=== PATIENT | female | born 1975 | race Caucasian/White ===

== ENCOUNTER 2016-06-30 09:08 | Emergency (ER) | payer OTHER ==
[2016-04-24 08:48] VITALS: BMI 27.4
[2016-06-30 10:43] LABS: RBC URINE 3 /hpf (0-3); URINE BILIRUBIN NEGATIVE (NEGATIVE); URINE BLOOD NEGATIVE (NEGATIVE); URINE COLOR Yellow (YELLOW); URINE GLUCOSE (UA) NORMAL (Normal); URINE KETONE TRACE mg/dL (NEGATIVE); URINE LEUKOCYTE ESTERASE NEG Leu/uL (Negative); URINE PROTEIN NEGATIVE (NEGATIVE); URINE UROBILINOGEN NORMAL mg/dL (0.2-1.0); WBC URINE 3 /hpf (0-5)
--- NOTE | 2016-06-30 11:04 | OBHP ---
Datetime: 06/30/2016 09:54 IP Adm Impression: , intrauterine ; No Active Labor IP Chief Complaint Other: lower abdominal pain Admit Comment, IP Provider: chief complaint- lower abdominal pain HPI 40 y/o at 31.6 wga with c/o lower abdominal pain since yesterday.Patient states that s he feels the pain is improved on lying down.Denies vaginal bleeding or loss of fluid.Patient denies v omiting or diarrhea.Has not had much water to drink course AMA PMH asthma PSH csection; hernia repairx2 Social hx denies tobacco,alcohol or illicit drug use Exam see exam section A/P 40 y/o at 31.6 wga with c/o low abdominal pain.Improved with rest.No active labor.Chec k UA 1101am UA neg for nitrites and LE; positive for epithelial cells A/P Patient with low abdominal pain.No active labor.Pian improved with rest -patient discharged home -advised to increase po fluid intake -follow up with dr sanchez tomorrow Pelvic Type - PN: Adequate Extremities - PN: Normal Abdomen - PN: Normal Back - PN: Normal Lungs - PN: Normal Heart - PN: Normal Neurologic - PN: Normal General - PN: Normal Contraction Comments Provider: none Gestation - Est Wks by US: 31.6 EGA AdmitDate IP: 31.6 Vital Signs Provider: Reviewed IP Chief Complaint: Other FHR Category Provider Fetus A: Category I Dilatation, Provider: 0 Effacement, Provider: 0 Station, Provider: high Genitourinary Exam: Normal DTRs - PN: Normal
== END 2016-06-30 11:09 | disposition home or self-care (01) ==
LOC: C.EROB 09:08
DX: O26.893 Other specified pregnancy related conditions, third trimester (principal); R10.30 Lower abdominal pain, unspecified; Z3A.31 31 weeks gestation of pregnancy

== ENCOUNTER 2016-07-08 08:59 | Emergency (ER) | payer OTHER ==
[2016-07-08 09:14] VITALS: BMI 33.3
[2016-07-08 09:16] VITALS: BP 122/75; PULSE 102; RESP 20; TEMP 97.8; O2SAT 99
[2016-07-08 10:36] LABS: RBC URINE 2 /hpf (0-3); URINE BACTERIA OCC (<OCC); URINE BILIRUBIN NEGATIVE (NEGATIVE); URINE BLOOD NEGATIVE (NEGATIVE); URINE COLOR Yellow (YELLOW); URINE GLUCOSE (UA) 2+ mg/dL (Normal); URINE KETONE TRACE mg/dL (NEGATIVE); URINE LEUKOCYTE ESTERASE TRACE Leu/uL (Negative); URINE PROTEIN NEGATIVE (NEGATIVE); URINE UROBILINOGEN NORMAL mg/dL (0.2-1.0); WBC URINE 6 /hpf (0-5)
--- NOTE | 2016-07-08 10:45 | OBDCSUM ---
Datetime: 07/08/2016 10:43 Discharged to, Provider: Home Follow up at, Provider: dr sanchez Follow up in weeks, Provider: 1-2 days Discharge Comment, Provider: dc home ptl given po hyrtion tylenol prn f/u dr gibbs in 1-2 days Discharge Diagnosis Prov Other: 33weeks nst muscle spasm
--- NOTE | 2016-07-08 10:45 | OBHP ---
Datetime: 07/08/2016 10:38 IP Adm Impression: , intrauterine IP Admit Plan: Discharge home Admit Comment, IP Provider: t 33weeks came with c/o groin pain started after she bend to put he r shoes, no ctxs,vb, lof,=fm, no dysuria. obhx 1 x sab, 1 x c/s pmh denies med pnv all nkda psh c/s soch denies ua 2=gl ve closed fs a/p at 33weeks r/o pt labor/r/o uti pooss muscle spasm dc home ptl given po hyrtion tylenol prn f/u dr gibbs in 1-2 days Pelvic Type - PN: Adequate Extremities - PN: Normal Abdomen - PN: Normal Back - PN: Normal Breast - PN: Normal Lungs - PN: Normal Heart - PN: Normal Thyroid - PN: Normal Neurologic - PN: Normal HEENT - PN: Normal General - PN: Normal FHR - Baseline A Provider: 140 Contraction Comments Provider: none Comments, ACOG Physical Exam: gravid,non tender ext no edema,no calf ten ve closed IP Hx Assessment: The History has been Reviewed and is Current EGA AdmitDate IP: 33.0 IP Chief Complaint: Maternal discomfort NICHD Variability Prov Fetus A: Moderate 6-25bpm NICHD Accel Fetus A IP Provider: 15X15 FHR Category Provider Fetus A: Category I Dilatation, Provider: 0 Effacement, Provider: 0 Station, Provider: -3 Genitourinary Exam: Normal DTRs - PN: Normal
== END 2016-07-08 10:43 | disposition home or self-care (01) ==
LOC: C.EROB 08:59
DX: O26.893 Other specified pregnancy related conditions, third trimester (principal); R10.30 Lower abdominal pain, unspecified; Z3A.33 33 weeks gestation of pregnancy

== ENCOUNTER 2016-07-24 08:42 | Emergency (ER) | payer OTHER ==
[2016-07-24 09:27] VITALS: BMI 33.7
--- NOTE | 2016-07-24 09:33 | OBHP ---
Datetime: 07/24/2016 09:29 IP Adm Impression: , intrauterine IP Chief Complaint Other: swollen legs and hands IP Admit Plan: Discharge home Admit Comment, IP Provider: at 35weeks came with c/o swollen legs and hands from 3 days , got w orse today. some hedache no blurry vision, no ctxs, vb, lof,+fm. obhx 1 x cs pmh denie med pnv all morphine psh hernia, c/s soch denies a/p at 35weeks r/o pih/pedal edema cbc/cmp/lfts/ua/pt cont bpp monitoring cont sandra and efm cont close observation Pelvic Type - PN: Adequate Extremities - PN: Normal Abdomen - PN: Normal Back - PN: Normal Breast - PN: Normal Lungs - PN: Normal Heart - PN: Normal Thyroid - PN: Normal Neurologic - PN: Normal HEENT - PN: Normal General - PN: Normal FHR - Baseline A Provider: 130 Contraction Comments Provider: none Comments, ACOG Physical Exam: gravid,non tender ext +edema,no calf ten 2+relexs IP Hx Assessment: The History has been Reviewed and is Current Vital Signs Provider: Reviewed; Within Normal Limits NICHD Variability Prov Fetus A: Moderate 6-25bpm NICHD Accel Fetus A IP Provider: 15X15 FHR Category Provider Fetus A: Category I Genitourinary Exam: Normal DTRs - PN: Normal Datetime: 07/08/2016 10:38 EGA AdmitDate IP: 33.0
[2016-07-24 09:48] LABS: HEMATOCRIT 35.7 % (34.0-47.0); MEAN CELL VOLUME 89.8 fL (81.0-99.0); MEAN CORPUSCULAR HEMOGLOBIN 29.6 pg (27.0-31.0); MEAN PLATELET VOLUME 9.4 fL (7.2-11.7); WHITE BLOOD COUNT 8.3 K/uL (4.8-10.8)
[2016-07-24 09:54] LABS: CHLORIDE 104 mmol/L (98-107)
[2016-07-24 09:55] LABS: POTASSIUM 3.5 mmol/L (3.6-5.2); SODIUM 134 mmol/L (132-148)
[2016-07-24 09:57] LABS: BILIRUBIN,DIRECT 0.1 mg/dL (0.0-0.4); BILIRUBIN,TOTAL 0.1 mg/dL (0.2-1.3); CARBON DIOXIDE 17 mmol/L (22-30); GFR AFRICAN-AMERICAN > 60; RBC URINE 3 /hpf (0-3); URINE BILIRUBIN NEGATIVE (NEGATIVE); URINE BLOOD NEGATIVE (NEGATIVE); URINE COLOR Yellow (YELLOW); URINE GLUCOSE (UA) NORMAL (Normal); URINE KETONE NEGATIVE (NEGATIVE); URINE LEUKOCYTE ESTERASE TRACE Leu/uL (Negative); URINE PROTEIN NEGATIVE (NEGATIVE); URINE UROBILINOGEN NORMAL mg/dL (0.2-1.0); WBC URINE 3 /hpf (0-5)
[2016-07-24 09:58] LABS: ALB/GLOB RATIO 0.9 (1.0-2.1); ALKALINE PHOSPHATASE 99 U/L (38-126); ALT/SGPT 22 U/L (9-52); AST/SGOT 17 U/L (14-36); BLOOD UREA NITROGEN 13 mg/dL (7-17); CALCIUM 8.5 mg/dl (8.6-10.4); GLUCOSE,RANDOM 124 mg/dL (65-105); TOTAL PROTEIN 6.2 g/dL (6.3-8.3)
--- NOTE | 2016-07-24 10:48 | OBHP ---
Datetime: 07/24/2016 10:46 Admit Comment, IP Provider: pt was seen at bed side. feels ok. pih work up carla bp normal plan dc home preeclamptic s/s given po hyration f/u pmd on wednesday FHR - Baseline A Provider: 130 Contraction Comments Provider: none Vital Signs Provider: Reviewed; Within Normal Limits NICHD Variability Prov Fetus A: Moderate 6-25bpm NICHD Accel Fetus A IP Provider: 15X15 FHR Category Provider Fetus A: Category I
== END 2016-07-24 10:49 | disposition home or self-care (01) ==
LOC: C.EROB 08:42
DX: O26.93 Pregnancy related conditions, unspecified, third trimester (principal); Z3A.35 35 weeks gestation of pregnancy; M79.89 Other specified soft tissue disorders

== ENCOUNTER 2016-08-15 02:35 | Inpatient (IN) | payer OTHER ==
[2016-08-15] MEDS ORDERED: Lactated Ringer's 1,000 ML IV SCH ×2 (05:00→19:15)
[2016-08-15 05:46] LABS: BASO % 0.4 % (0.0-2.0); EOS # 0.1 K/uL (0.0-0.7); EOS % 1.3 % (0.0-4.0); HEMATOCRIT 40.2 % (34.0-47.0); LYMPH # 1.4 K/uL (1.0-4.3); LYMPH % 15.3 % (20.0-40.0); MEAN CELL VOLUME 90.3 fL (81.0-99.0); MEAN CORPUSCULAR HEMOGLOBIN 30.4 pg (27.0-31.0); MEAN CORPUSCULAR HGB CONC 33.6 g/dL (33.0-37.0); MEAN PLATELET VOLUME 10.6 fL (7.2-11.7); MONO # 0.6 K/uL (0.0-0.8); MONO % 7.1 % (0.0-10.0); NRBC % 0.2 % (0.0-2.0); RED CELL DISTRIBUTION WIDTH 14.4 % (11.5-14.5)
[2016-08-15 05:54] LABS: RBC URINE 4 /hpf (0-3); URINE BACTERIA RARE (<OCC); URINE BILIRUBIN NEGATIVE (NEGATIVE); URINE BLOOD 2+ (NEGATIVE); URINE COLOR Yellow (YELLOW); URINE GLUCOSE (UA) NORMAL (Normal); URINE KETONE NEGATIVE (NEGATIVE); URINE LEUKOCYTE ESTERASE NEG Leu/uL (Negative); URINE PROTEIN NEGATIVE (NEGATIVE); URINE UROBILINOGEN NORMAL mg/dL (0.2-1.0); WBC URINE 1 /hpf (0-5)
[2016-08-15 06:03] LABS: CHLORIDE 99 mmol/L (98-107); POTASSIUM 3.7 mmol/L (3.6-5.2); SODIUM 135 mmol/L (132-148)
[2016-08-15 06:05] LABS: AST/SGOT 25 U/L (14-36); BILIRUBIN,TOTAL 0.6 mg/dL (0.2-1.3); CARBON DIOXIDE 23 mmol/L (22-30); GFR AFRICAN-AMERICAN > 60
[2016-08-15 06:06] LABS: ALB/GLOB RATIO 1.1 (1.0-2.1); ALKALINE PHOSPHATASE 134 U/L (38-126); ALT/SGPT 30 U/L (9-52); BLOOD UREA NITROGEN 16 mg/dL (7-17); CALCIUM 9.7 mg/dl (8.6-10.4); GLUCOSE,RANDOM 78 mg/dL (65-105); TOTAL PROTEIN 6.9 g/dL (6.3-8.3)
[2016-08-15] MEDS ORDERED: Sodium Citrate/Citric Acid 15 ml Sol PO ONE (06:32)
[2016-08-15] MEDS ORDERED: cefOXitin IV 2 gm in Dextrose 2 GM/50 ML BAG IVPB ONE ×2 (06:32→15:50)
--- NOTE | 2016-08-15 07:04 | OBADHP ---
Datetime: 08/15/2016 03:35 Admit Comment, IP Provider: chief complaint- vaginal bleeding HPI 40 y/o at 38.3 wga with c/o noticing bleeding.states she had intecrourse at 11pm and a fter that noticed bleeding.She denies feeling any pain.report active movement.Denies nausea, vo miting, hedache, chest pain,shortness of breath, numbness or tingling in hands and feet course AMA PMH asthma PSH csection; hernia repairx2 Social hx denies tobacco,alcohol or illicit drug use Exam see exam section Speculum exam- vulva -small skin abreasion seen at introitus Vagina -no blood; physiologic discharge cervix closed uterus gravid adnexa no adnexal tenderness A/P 40 y/o at 38.3 wga with post-coital bleeding. no active bleeding now.cervix closed.Patien t with contractions.patient noted to have high bp when undergoing speculum exam but normal bp otherwi se.patient denies any PIH symptoms -admit -iv fluids -monitor closely Dr Villagomez aware Pelvic Type - PN: Adequate Extremities - PN: Normal Abdomen - PN: Normal Back - PN: Normal Lungs - PN: Normal Heart - PN: Normal Neurologic - PN: Normal General - PN: Normal Contraction Comments Provider: every 3min -irregular Gestation - Est Wks by US: 38.3 IP Hx Assessment: The History has been Reviewed and is Current Vital Signs Provider: Reviewed IP Chief Complaint: Vaginal bleeding FHR Category Provider Fetus A: Category I Dilatation, Provider: closed Effacement, Provider: thick Station, Provider: high Genitourinary Exam: Normal DTRs - PN: Normal EGA AdmitDate IP: 38.3 IP Adm Impression: Term, intrauterine ; No Active Labor Datetime: 07/24/2016 10:46 FHR - Baseline A Provider: 130 NICHD Variability Prov Fetus A: Moderate 6-25bpm NICHD Accel Fetus A IP Provider: 15X15 Datetime: 07/24/2016 09:29 IP Chief Complaint Other: swollen legs and hands Breast - PN: Normal Thyroid - PN: Normal HEENT - PN: Normal Comments, ACOG Physical Exam: gravid,non tender ext +edema,no calf ten 2+relexs IP Admit Plan: Discharge home Datetime: 06/12/2016 11:51 IP Adm Impression Other: Intact Membranes Presentation-Admit: Vertex Membranes, Provider: Intact Pool Provider: Negative Nitrazine Provider: Negative NICHD Decel Fetus A IP Provider: None
[2016-08-15] MEDS ORDERED: Sodium Citrate/Citric Acid 15 ml Sol ONE (15:50)
[2016-08-15] MEDS ORDERED: Oxytocin 20 units in LR 2,000 ML IV ONE (15:50)
--- NOTE | 2016-08-15 15:58 | OBPN ---
Datetime: 08/15/2016 15:52 IP Progress Impression Other: Previous Section with Persistent Uterine contractions IP Progress Impression: Reassuring heart rate IP Informed Consent Obtain: Section Delivery IP Progress Plan: Deliver- Section Contraction Comments Provider: Q 2-3 FHR - Baseline A Provider: 130s Gestation - Est Wks by US: 38.6 Presentation-Admit: Vertex IP Progress Note Comment: IUP At Term Previous Section with Persistent Contractions Assessment: IUP at 38wks Painful uterine contractions. Plan: Topographical Engineer to the OR for a repeat Section. IV Fluids Sequential compression device NICHD Accel Fetus A IP Provider: 15X15 FHR Category Provider Fetus A: Category I NICHD Variability Prov Fetus A: Moderate 6-25bpm Dilatation, Provider: closed Effacement, Provider: thick Station, Provider: -3 NICHD Decel Fetus A IP Provider: None Datetime: 08/15/2016 03:35 Vital Signs Provider: Reviewed Datetime: 06/12/2016 11:51 Pool Provider: Negative Nitrazine Provider: Negative Membranes, Provider: Intact
[2016-08-15] MEDS ORDERED: Morphine 4 MG/ML VIAL ONE (17:56)
[2016-08-15] MEDS ORDERED: ePHEDrine 50 mg/ml Inj ONE (17:56)
[2016-08-15] MEDS ORDERED: Morphine 1 mg/ml preservative-free Inj(Duramorph) ONE (17:57)
[2016-08-15] MEDS ORDERED: Oxycodone/Acetaminophen 5/325 mg Tab PO PRN (19:10)
--- NOTE | 2016-08-15 19:11 | OBDS ---
DELIVERY PERSONNEL Delivery Doctor: Morris Villagomez MD Scrub Nurse: Rosy Mobley OBT Business Continuity Planner: Debbie Crain RN Anesthesiologist: MD Olaf MATERNAL INFORMATION Delivery Anesthesia: Spinal Medications in Delivery: Pitocin 40 units in 1000ml LR RN Comments: Rc/s to a live baby Boy, attended to by dr. Sanchez and Carly GASTELUM. 9:9, stable Provider Comments: Uncomplicated Repeat section with delivery of a viable male with BW of 3610gms scores of 9 and 9. LABOR SUMMARY EDC: 08/26/2016 00:00 No. Babies in Womb: 1 Attempted: No Labor Anesthesia: None LABOR INFORMATION Onset of Labor: 08/15/2016 02:00 Group B Beta Strep: Negative Antibiotics # of Doses: 1 Antibiotics Time of Last Dose: 1740 MEMBRANES Membranes Rupture Method: Artificial Rupture of Membranes: 08/15/2016 18:17 Length of Rupture (hrs): 0.02 Amniotic Fluid Color: Clear Amniotic Fluid Amount: Moderate Amniotic Fluid Odor: Normal STAGES OF LABOR Stage 3 hrs: 0 Stage 3 min: 1 Total Time in Labor hrs: 16 Total Time in Labor min: 19 CSECTION DELIVERY Primary Indication: Repeat Elective Other Primary Indication: Prev. c/s in early labor Secondary Indication: N/A CSection Urgency: Elective CSection Incidence: Repeat Labor: Labor Elective: Elective CSection Incision: Lower Uterine Transverse Uterine Closure: Double-layer closure BABY A INFORMATION Delivery Date/Time: 08/15/2016 18:18 Method of Delivery: Born in Route : No : N/A Forceps: N/A Vacuum Extraction: N/A Shoulder Dystocia : No SHOULDER DYSTOCIA BABY A Delivery Date/Time: 08/15/2016 18:18 PRESENTATION/POSITION BABY A Presentation: Cephalic Cephalic Presentation: Vertex Vertex Position: Left Occipital Anterior Breech Presentation: N/A PLACENTA INFORMATION BABY A Placenta Delivery Time : 08/15/2016 18:19 Placenta Method of Delivery: Manual Removal Placenta Status: Delivered SCORES BABY A Heart Rate 1 min: >100 bpm Resp Effort 1 min: Good Cry Reflex Irritability 1 min: Cough or Sneeze or Pulls Away Muscle Tone 1 min: Active Motion Color 1 min: Body [place], Extremities Blue SCORE 1 MIN: 9 Heart Rate 5 min: >100 bpm Resp Effort 5 min: Good Cry Reflex Irritability 5 min: Cough or Sneeze or Pulls Away Muscle Tone 5 min: Active Motion Color 5 min: Body [place], Extremities Blue SCORE 5 MIN: 9 INFANT INFORMATION BABY A Gestational Age at Delivery: 38.3 Gestational Status: Term Outcome : Liveborn Condition : Stable Sex: Male IDENTIFICATION/MEDS BABY A ID Band Number: [id number] Sensor Number: [id number] (Annotations: Data stored by [facility] on behalf of user) WEIGHT/LENGTH BABY A Infant Birthweight (gms): 3610 Weight (lb): 7 Weight (oz): 15 Infant Length Inches: 20.00 Infant Length cms: 50.8 CORD INFORMATION BABY A No. Cord Vessels: 3 Nuchal Cord : N/A Nuchal Cord Other: n/a True Knot: 0 Cord Blood Taken: Yes ASSESSMENT BABY A Infant Complications: None Physical Findings at Delivery: Within Normal Limits Respirations: Appears Normal [place]/ALS Called : No Care By: dr. Sanchez/ORIANA Carroll Transferred To: [facility]
--- NOTE | 2016-08-15 19:26 | PCM.SURG1 ---
Surgeon's Initial Post Op Note - Surgeon's Notes Surgeon: Dr Villagomez Pharmacist In Charge: Dr Miranda. Type of Anesthesia: General Endo Anesthesia Administered By: Dr Murillo Pre-Operative Diagnosis: IUP at 38wks with a prior section, Early Labor. Operative Findings: Live male infant with BW of 3610gms and scores of 9 and 9, Delivered in the Right occipitoanterior position, Clear amniotic fluid and fundal placenta, the bladder was drawn up over the lower uterine segment. The fallopian tube and ovaries on both sides appeared normal. The lower uterine segment was thin. IVFluid intake- 1700mls. Urine output- 250mls. EBL- 600mls Post-Operative Diagnosis: Same as preop Diagnosis Operation Performed: Repeat Section Specimen/Specimens Removed: Placenta Estimated Blood Loss: EBL {In ML}: 600 Post-Op Condition: Good Date of Surgery/Procedure: 08/15/16 Time of Surgery/Procedure: 19:27
[2016-08-15] MEDS ORDERED: DiphenhydrAMINE 50 mg/ml Inj IVP STA (19:55)
--- NOTE | 2016-08-15 20:11 | OP ---
PROCEDURE DATE: 08/15/2016 PREOPERATIVE DIAGNOSES: Intrauterine at 38 weeks with a prior section with persistent contractions and early labor. POSTOPERATIVE DIAGNOSES: Intrauterine at 38 weeks with a prior section with persistent contractions and early labor. PROCEDURE DONE: Repeat low transverse section. SURGEON: Dr. Villagomez. URGENT CARE TECHNICIAN: Dr. Miranda. Assistance to this procedure was needed for exposure of tissues and also help in the conduct of the surgery and delivery of the baby. The nursing assistants teacher remained with the procedure throughout its entire length. ANESTHESIA: Spinal. Anesthesia was administered by Dr. Smith. OPERATIVE FINDINGS: A live male with weight of 3610 grams with scores of 9 in the first and fifth minutes respectively, delivered in the right to anterior position with clear amniotic fluid and fundal placenta. The bladder was seen to have been drawn up over the lower uterine segment and was dissected off before the low transverse incision. The fallopian tubes and ovaries on both sides appeared normal. The uterus also appeared normal. The lower uterine segment was thin. INTRAVENOUS FLUID INTAKE: 1700 mL. URINE OUTPUT: 250 mL of clear urine. ESTIMATED BLOOD LOSS: 600 mL. DESCRIPTION OF PROCEDURE: After obtaining informed consent and after going through all the risks, benefits and alternatives of section, and having all her questions answered, the patient was sent to the OR with IV running and Brown catheter in place. In the OR, the patient was sat on the OR table and after adequate spinal anesthesia, was put in a supine position with a left lateral tilt. The patient was then prepped and draped in a sterile fashion. A Pfannenstiel skin incision was made through the old incisional scar and this incision was carried sharply through the subcutaneous tissues using a scalpel. Once the rectus fascia was identified, it was divided in a transverse fashion using a Bovie device. The incisions were extended to both sides by means of Piña scissors. The rectus fascia was then lifted off the underlying rectus muscles, both superiorly and inferiorly by means of a blunt dissection and sharp dissection with Piña scissors. The rectus muscle was in the midline to expose the peritoneum, which was carefully entered with Metzenbaum scissors. Once the abdomen was entered, the vesicouterine fold of peritoneum which was drawn up over the lower uterine segment was incised in a transverse fashion and then retracted inferiorly to expose the lower uterine segment. There was a thin lower uterine segment and incision was made with a scalpel. This was sent through the myometrial layers until the amniotic membranes were identified. The incision was extended to both sides in a blunt fashion. The amniotic membranes were ruptured using the pickup forceps and the baby, which was in the right to anterior position, was delivered. The mouth and nostrils of the baby was bulb suctioned and the 3-vessel umbilical cord was clamped and cut and the baby was given to the nurse. Umbilical cord blood was obtained for analysis and the placenta was manually removed from the uterine cavity. The uterus was brought out of the abdominal cavity and the uterine cavity was cleaned of all debris using dry laparotomy pads. The uterine incision was then identified and then was closed in 2 layers using Vicryl #0; the first layer in a running locked fashion and the second layer in a running fashion and imbricating the first layer. This was conducted in such a way to obtain hemostasis. Once hemostasis was assured, irrigation of both the posterior and anterior portions of the uterus was done using warm saline. The uterus was then returned into the abdominal cavity. The paracolic gutters were cleaned with wet laparotomy pads. Once hemostasis was assured, attention was turned to the anterior abdominal wall, which was closed in layers with 2-0 Vicryl for the peritoneum and the rectus muscles. The rectus fascia was reapproximated using Vicryl #0. The subcutaneous tissue was brought together by means of #2-0 plain catgut. The skin was closed in a subcuticular fashion using #4-0 Biosyn. All counts of instruments, laparotomy pads, and needles used were correct x 3 and the patient was sent to the recovery room awake and in stable condition. Du Villagomez MD cc: [id number] TT: 08/15/2016 20:10:37 [place]
[2016-08-15] MEDS ORDERED: DiphenhydrAMINE 50 mg/ml Inj ONE (22:20)
[2016-08-16] MEDS: Trimethobenzamide 200 mg/2 mL Inj IM SCH ×4 (00:05→19:21)
[2016-08-16 07:42] LABS: BASO # 0.1 K/uL (0.0-0.2); BASO % 0.4 % (0.0-2.0); HEMATOCRIT 35.1 % (34.0-47.0); LYMPH # 0.5 K/uL (1.0-4.3); LYMPH % 3.8 % (20.0-40.0); MEAN CELL VOLUME 90.6 fL (81.0-99.0); MEAN CORPUSCULAR HEMOGLOBIN 30.1 pg (27.0-31.0); MEAN CORPUSCULAR HGB CONC 33.2 g/dL (33.0-37.0); MEAN PLATELET VOLUME 10.1 fL (7.2-11.7); MONO # 0.4 K/uL (0.0-0.8); PLATELET COUNT 186 K/uL (130-400); RED CELL DISTRIBUTION WIDTH 13.9 % (11.5-14.5); WHITE BLOOD COUNT 14.1 K/uL (4.8-10.8)
[2016-08-16 09:09] LABS: NEUTROPHIL 91 % (50-75); TOTAL CELLS COUNTED 100
[2016-08-16 09:10] LABS: LARGE PLATELETS PRESENT
[2016-08-16 16:12] VITALS: RESP 20
--- NOTE | 2016-08-16 20:47 | OBPPN ---
Datetime: 08/16/2016 09:40 PP Pain Prov: Within normal limits PP Nausea Prov: Denies PP Flatus Prov: Yes PP Breasts Prov: Normal PP Heart Prov: Normal PP Lungs Prov: Normal PP Abdomen/Uterus Prov: Normal PP Lochia Prov: Normal PP Vulva/Perineum Prov: Normal PP CVA Tenderness Prov: Normal PP Extremities Prov: Normal PP C/S Incision Prov: Normal PP Progress Prov: Normal PP Comments Phys Exam Prov: Abd: Soft, NT, BS - present UT: Firm and Well contracted. PP Impression Prov: Normal progression PP Plan Prov: Continue present management PP Impression Other Prov: S/P Repeat Section PP Progress Note Prov: S/P Repeat Section, POD #1 Clinically Stable. Plan: Continue Care. Vital Signs Provider PP: Reviewed
[2016-08-17 02:19] VITALS: BP 127/69; PULSE 84; TEMP 98.9; O2SAT 98
--- NOTE | 2016-08-17 23:39 | OBPPN ---
Datetime: 08/17/2016 12:36 PP Pain Prov: Within normal limits PP Nausea Prov: Denies PP Flatus Prov: Yes PP Breasts Prov: Normal PP Heart Prov: Normal PP Lungs Prov: Normal PP Abdomen/Uterus Prov: Normal PP Lochia Prov: Normal PP Vulva/Perineum Prov: Normal PP CVA Tenderness Prov: Normal PP Extremities Prov: Normal PP C/S Incision Prov: Normal PP Progress Prov: Normal PP Comments Phys Exam Prov: Abd: Soft, NT, BS- present UT: Firm and well contracted Incision: Clean and dry. PP Impression Prov: Normal progression PP Progress Note Prov: S/P Repeat Section,POD#2 Clinically stable. Patient requests discharge home today. Plan: Discharge if Baby is cleared from Peds. F/U with Dr Villagomez in 2 weeks for wound check.
--- NOTE | 2016-08-17 23:41 | OBDCSUM ---
Datetime: 08/17/2016 19:28 Discharged to, Provider: Home Follow up at, Provider: Dr Villagomez Disch Instr Activity: Normal activity; May Shower Disch Instr Diet: Regular Discharge Diet restrict Prov: none Discharge Diagnosis, Provider: Term Delivered Discharge Time: 08/17/2016 19:28 Follow up in weeks, Provider: 1 week Disch Referrals: None Disch Activity Restrictions: No exercising; No lifting; No sexual activity; Nothing in vagina - Inte rcourse, tampons, douche Discharge Comment, Provider: S/P Repeat Casarean Section, Clinically Stable Discharge Diagnosis Prov Other: S/P Repeat Casarean Section, Clinically Stable
== END 2016-08-17 22:00 | disposition home or self-care (01) | DRG 371 ==
LOC: C.EROB 02:35 → C.4D 04:45 → C.4M 08-16 00:29
PROVIDERS: ADMIT Student in an Organized Health Care Education/Training Program; ATTEND Obstetrics & Gynecology
PROC: 10D00Z1 Extraction of Products of Conception, Low, Open Approach (ICD-10-PCS; principal; 2016-08-15)
DX: O34.211 Maternal care for low transverse scar from previous cesarean delivery (principal); J45.909 Unspecified asthma, uncomplicated; O99.52 Diseases of the respiratory system complicating childbirth; Z37.0 Single live birth; Z3A.38 38 weeks gestation of pregnancy; O09.523 Supervision of elderly multigravida, third trimester

== ENCOUNTER 2016-10-14 09:14 | Emergency (ER) | payer OTHER ==
[2016-10-14 09:15] VITALS: BMI 33.7
[2016-10-14 09:20] VITALS: TEMP 98.1; O2SAT 98
[2016-10-14] MEDS ORDERED: Naproxen 550 mg Tab PO STA (09:58)
--- NOTE | 2016-10-14 10:02 | C.PDOC ---
History Of Present Illness 40 y/o female presents to the ED with complaints of productive cough with clear sputum, runny nose and sinus pressure for the past several days. Pt admits to a history of seasonal allergies, states she took Coco yesterday which improved runny nose and sinus pressure. However she states cough has persisted. Pt also complaining of left shoulder pain since she received injection of antiemetic medication fin August when she delivered her child. She states the pain has been persistent, worse with movement of the shoulder. She denies falls/injuries, fever, CP, SOB. Time Seen by Provider: 10/14/16 09:21 Chief Complaint (Nursing): Upper Extremity Problem/Injury History Per: Patient History/Exam Limitations: no limitations Onset/Duration Of Symptoms: Days Current Symptoms Are (Timing): Still Present Location Of Pain: Sinus/es Sick Contacts (Context): None Associated Symptoms: Cough, Sputum. denies: Fever, Chills, Sore Throat Severity: Mild Past Medical History Reviewed: Historical Data, Nursing Documentation, Vital Signs Vital Signs: Last Vital Signs Temp 98.1 F 10/14/16 09:19 Pulse 78 10/14/16 10:06 Resp 18 10/14/16 10:06 BP 126/78 10/14/16 10:06 Pulse Ox 98 10/14/16 10:43 - Medical History PMH: Asthma, Fractures (ANKLE) Surgical History: Hernia Repair (x 2), - [facility] Procedures EXTRACTION OF POC, LOW CERVICAL, OPEN APPROACH (08/15/16) Family History: States: No Known Family Hx - Social History Hx Tobacco Use: No Hx Alcohol Use: No Hx Substance Use: No - Immunization History Hx Tetanus Toxoid Vaccination: No Hx Influenza Vaccination: No Hx Pneumococcal Vaccination: No Review Of Systems Except As Marked, All Systems Reviewed And Found Negative. Constitutional: Negative for: Fever, Chills ENT: Positive for: Nose Discharge, Other (sinus pressure) Cardiovascular: Negative for: Chest Pain Respiratory: Positive for: Cough, Sputum. Negative for: Shortness of Breath Gastrointestinal: Negative for: Nausea, Vomiting, Abdominal Pain, Diarrhea Musculoskeletal: Positive for: Shoulder Pain (left) Physical Exam - Physical Exam Appears: Well, Non-toxic, No Acute Distress, Other (speaking in full sentences) Skin: Warm, Dry, No Rash Head: Normacephalic Ear(s): Bilateral: Normal Oral Mucosa: Moist Throat: Normal, No Erythema, No Exudate Neck: Normal, Supple Cardiovascular: Rhythm Regular Respiratory: Normal Breath Sounds, No Rales, No Rhonchi, No Wheezing, Other ( occasionally coughing) Extremity: Tenderness (left shoulder tenderness along lateral deltoid, decreased ROM with abduction; no swelling, no erythema, no fluctuance), Capillary Refill (< 2 sec all digits), No Deformity, Other ((+) TTP along left deltoid muscle, (+) spasm noted with abduction and flexion of the shoulder) Extremity: Bilateral: Normal Color And Temperature Pulses: Left Radial: Normal, Right Radial: Normal Neurological/Psych: Oriented x3, Normal Sensation ED Course And Treatment O2 Sat by Pulse Oximetry: 98 (room air) Pulse Ox Interpretation: Normal Progress Note: Patient instructed to continue Allergra. She was given PO Tessalon, Naprosyn and Flexril, in ED, as well as Rxs for same. Patent instructed to follow up with PMD/clinic in 1-2 days, and she understands she should return to ED if her symptoms worsen. Reevaluation Time: 10:05 Reassessment Condition: Improved Disposition Counseled Patient/Family Regarding: Studies Performed, Diagnosis, Need For Followup, Rx Given - Disposition Referrals: [facility] [Outside] Disposition: HOME/ ROUTINE Disposition Time: 10:05 Condition: STABLE Additional Instructions: FOLLOW UP IN THE MEDICAL CLINIC IN 1-2 DAYS USE MEDICATIONS DIRECTED DRINK PLENTY OF FLUIDS CONTINUE USING YOUR COCO DAILY RETURN TO ER IF SYMPTOMS WORSEN Prescriptions: Albuterol HFA [Ventolin HFA 90 mcg/actuation (8 g)] 0.09 mg IH Q4 PRN #1 puff PRN Reason: Wheezing Benzonatate [Tessalon Perles] 100 mg PO BID PRN #15 sgl PRN Reason: Cough Cyclobenzaprine [Cyclobenzaprine HCl] 10 mg PO BID PRN #12 tab PRN Reason: pain/muscle Naproxen [Naprosyn Tab] 375 mg PO BID PRN #15 tab PRN Reason: pain Instructions: Upper Respiratory Infection (ED), Muscle Cramp (ED) Print Language: KAZAKH - POA Present On Arrival: None - Clinical Impression Clinical Impression: Cough, Upper respiratory infection, Muscle cramp - Scribe Statement The provider has reviewed the documentation as recorded by the Preston Salazar Provider Attestation: All medical record entries made by the Preston were at my direction and personally dictated by me. I have reviewed the chart and agree that the record accurately reflects my personal performance of the history, physical exam, medical decision making, and the department course for this patient. I have also personally directed, reviewed, and agree with the discharge instructions and disposition.
[2016-10-14] MEDS ORDERED: Naproxen 550 mg Tab PO ONE (10:04)
[2016-10-14 10:07] VITALS: BP 126/78; PULSE 78; RESP 18
== END 2016-10-14 10:07 | disposition home or self-care (01) ==
LOC: C.ER 09:14 → SUPCPDRO 09:14 → C.ER 10:07
DX: J06.9 Acute upper respiratory infection, unspecified (principal); R25.2 Cramp and spasm

== ENCOUNTER 2017-02-01 08:48 | Emergency (ER) | payer OTHER ==
[2017-02-01 08:49] VITALS: BMI 33.7
[2017-02-01 09:13] VITALS: TEMP 98.1
[2017-02-01 09:26] VITALS: O2SAT 99
--- NOTE | 2017-02-01 10:04 | C.PDOC ---
History Of Present Illness Patient with PMHx of asthma, reports cough which is associated with sore throat and mild wheezing since last night. Patient did not have her asthma pump. Patient reports (+) sick contact as child is ill with similar symptoms. Denies nausea, vomiting, diarrhea, neck pain, rash, travel, chestpain, SOB. Time Seen by Provider: 02/01/17 09:47 Chief Complaint (Nursing): Shortness Of Breath History Per: Patient History/Exam Limitations: no limitations Current Symptoms Are (Timing): Still Present Exacerbating Factor(s): Coughing Associated Symptoms: denies: Fever, Chills, Chest Pain, Bloody Cough Recent travel outside of the [place]: No Past Medical History Reviewed: Historical Data, Nursing Documentation, Vital Signs Vital Signs: Last Vital Signs Temp 98.1 F 02/01/17 09:08 Pulse 77 02/01/17 09:08 Resp 20 02/01/17 09:08 BP 131/80 02/01/17 09:08 Pulse Ox 99 02/01/17 10:07 - Medical History PMH: Asthma, Fractures (ANKLE) Denies: Chronic Kidney Disease Surgical History: Hernia Repair (x 2), - [facility] Procedures EXTRACTION OF POC, LOW CERVICAL, OPEN APPROACH (08/15/16) Family History: States: Unknown Family Hx - Social History Hx Tobacco Use: No Hx Alcohol Use: No Hx Substance Use: No - Immunization History Hx Tetanus Toxoid Vaccination: No Hx Influenza Vaccination: No Hx Pneumococcal Vaccination: No Review Of Systems Except As Marked, All Systems Reviewed And Found Negative. Physical Exam - Physical Exam Appears: Non-toxic, No Acute Distress Skin: Normal Color, Warm, No Rash Head: Atraumatic, Normacephalic Eye(s): bilateral: Normal Inspection, PERRL, EOMI Ear(s): Bilateral: Normal Oral Mucosa: Moist Throat: No Erythema, No Exudate Neck: Normal ROM, Supple Lymphatic: Normal Exam Chest: Symmetrical, No Tenderness Cardiovascular: Rhythm Regular, No Friction Rub, No Murmur Respiratory: Normal Breath Sounds, No Rales, No Rhonchi, No Wheezing Gastrointestinal/Abdominal: Soft, No Tenderness Back: Normal Inspection, No CVA Tenderness Extremity: Normal ROM, No Tenderness, No Swelling Neurological/Psych: Oriented x3, Normal Speech, Normal Motor, Normal Sensation Gait: Steady ED Course And Treatment O2 Sat by Pulse Oximetry: 99 (on RA) Pulse Ox Interpretation: Normal Medical Decision Making Medical Decision Making: Patient has no wheezing or SOB now. Will discharge with Rx for albuterol. Disposition - Disposition Referrals: Shaik Phan MD [Staff Provider] - Disposition: HOME/ ROUTINE Disposition Time: 10:17 Condition: GOOD Additional Instructions: Follow up with the medical doctor within 1-2 days. Return if worsened. Prescriptions: Albuterol HFA [Ventolin HFA 90 mcg/actuation (8 g)] 1 puff IH Q6 #100 puff Ibuprofen [Motrin] 600 mg PO TID #21 tab predniSONE [Prednisone] 20 mg PO BID #10 tab Instructions: Upper Respiratory Infection (ED) Forms: [facility] (Setswana) - Clinical Impression Clinical Impression: Upper respiratory infection
[2017-02-01 10:21] VITALS: BP 120/74; PULSE 74; RESP 18
== END 2017-02-01 10:31 | disposition home or self-care (01) ==
LOC: C.ER 08:48
DX: J06.9 Acute upper respiratory infection, unspecified (principal)

== ENCOUNTER 2017-02-09 08:52 | Emergency (ER) | payer OTHER ==
[2017-02-09 08:53] VITALS: BMI 33.7
[2017-02-09 09:28] VITALS: PULSE 88; RESP 16; TEMP 97.9; O2SAT 98
--- NOTE | 2017-02-09 09:36 | C.PDOC ---
History Of Present Illness 41 y/o female presents to ED with c/o diminished hearing in right ear for the last week. Notes she q-tips vigorously. Denies fever, chills, headache, sore throat, cough. Time Seen by Provider: 02/09/17 09:32 Chief Complaint (Nursing): ENT Problem History Per: Patient History/Exam Limitations: None Onset/Duration Of Symptoms: Days Current Symptoms Are (Timing): Still Present Past Medical History Reviewed: Historical Data, Nursing Documentation, Vital Signs Vital Signs: Last Vital Signs Temp 97.9 F 02/09/17 09:05 Pulse 88 02/09/17 09:05 Resp 16 02/09/17 09:05 BP 138/89 02/09/17 09:35 Pulse Ox 98 02/09/17 09:36 - Medical History PMH: Asthma, Fractures (ANKLE) Denies: Chronic Kidney Disease Surgical History: Hernia Repair (x 2), - [facility] Procedures EXTRACTION OF POC, LOW CERVICAL, OPEN APPROACH (08/15/16) Family History: States: Unknown Family Hx - Social History Hx Tobacco Use: No Hx Alcohol Use: No Hx Substance Use: No - Immunization History Hx Tetanus Toxoid Vaccination: No Hx Influenza Vaccination: No Hx Pneumococcal Vaccination: No Review Of Systems Except As Marked, All Systems Reviewed And Found Negative. Constitutional: Negative for: Fever ENT: Negative for: Ear Pain, Ear Discharge Respiratory: Negative for: Cough, Shortness of Breath, Wheezing Gastrointestinal: Negative for: Vomiting Skin: Negative for: Rash Neurological: Negative for: Headache, Dizziness Physical Exam - Physical Exam Appears: Non-toxic, No Acute Distress Skin: Normal Color, Warm, Dry Head: Atraumatic, Normacephalic Eye(s): bilateral: Normal Inspection, PERRL, EOMI Ear(s): Bilateral: Other (mildly exocirated ear canals ) Nose: Normal Oral Mucosa: Moist Throat: Normal, No Erythema, No Exudate Neck: Normal ROM, Supple Chest: Symmetrical Cardiovascular: Rhythm Regular Respiratory: Normal Breath Sounds, No Rales, No Rhonchi, No Wheezing Gastrointestinal/Abdominal: Soft, No Tenderness, No Guarding, No Rebound Back: Normal Inspection Extremity: Normal ROM, Capillary Refill (< 2 sec.) Neurological/Psych: Oriented x3, Normal Speech, Normal Cognition ED Course And Treatment O2 Sat by Pulse Oximetry: 98 (RA) Pulse Ox Interpretation: Normal Medical Decision Making Medical Decision Making: one week ? R ear discomfort/hearing loss normal exam ? viral. Disposition Doctor Will See Patient In The: Office Counseled Patient/Family Regarding: Studies Performed, Diagnosis - Disposition Referrals: Shaik Phan MD [Staff Provider] - Mariano Cason MD [Staff Provider] - Disposition: HOME/ ROUTINE Disposition Time: 09:36 Condition: GOOD Additional Instructions: consider decongestant medications safe in breast feeding Follow-up with PMD or ENT as needed. Instructions: Viral Syndrome (ED) Forms: [employer] (Saudi Arabian) - Clinical Impression Clinical Impression: Hearing decreased - Scribe Statement The provider has reviewed the documentation as recorded by the Scribe SM All medical record entries made by the Scribe were at my direction and personally dictated by me. I have reviewed the chart and agree that the record accurately reflects my personal performance of the history, physical exam, medical decision making, and the department course for this patient. I have also personally directed, reviewed, and agree with the discharge instructions and disposition.
[2017-02-09 09:45] VITALS: BP 138/89
== END 2017-02-09 09:45 | disposition home or self-care (01) ==
LOC: C.ER 08:52
DX: H91.91 Unspecified hearing loss, right ear (principal)

== ENCOUNTER 2017-03-30 13:27 | Emergency (ER) | payer OTHER ==
[2017-03-30 13:27] VITALS: BMI 33.7
[2017-03-30 13:44] VITALS: RESP 18
[2017-03-30] MEDS ORDERED: Belladonna-Phenobarbital PO STA (14:14)
[2017-03-30] MEDS ORDERED: Lactated Ringer's 1,000 ML IVB STA (14:15)
[2017-03-30] MEDS ORDERED: Belladonna-Phenobarbital ONE (14:26)
[2017-03-30 14:29] LABS: BASO # 0.1 K/uL (0.0-0.2); BASO % 0.9 % (0.0-2.0); EOS # 0.2 K/uL (0.0-0.7); EOS % 3.4 % (0.0-4.0); HEMATOCRIT 37.4 % (34.0-47.0); LYMPH # 1.6 K/uL (1.0-4.3); MEAN CELL VOLUME 85.4 fL (81.0-99.0); MEAN CORPUSCULAR HEMOGLOBIN 29.3 pg (27.0-31.0); MEAN CORPUSCULAR HGB CONC 34.4 g/dL (33.0-37.0); MEAN PLATELET VOLUME 8.9 fL (7.2-11.7); MONO # 0.4 K/uL (0.0-0.8); MONO % 7.2 % (0.0-10.0); RED CELL DISTRIBUTION WIDTH 12.7 % (11.5-14.5)
[2017-03-30 14:43] LABS: ALB/GLOB RATIO 1.5 (1.0-2.1); ALKALINE PHOSPHATASE 64 U/L (38-126); ALT/SGPT 22 U/L (9-52); AST/SGOT 21 U/L (14-36); BILIRUBIN,TOTAL 0.4 mg/dL (0.2-1.3); BLOOD UREA NITROGEN 15 mg/dL (7-17); CALCIUM 8.7 mg/dl (8.6-10.4); CARBON DIOXIDE 27 mmol/L (22-30); CHLORIDE 99 mmol/L (98-107); GFR AFRICAN-AMERICAN > 60; GLUCOSE,RANDOM 98 mg/dL (65-105); POTASSIUM 3.9 mmol/L (3.6-5.2); SODIUM 136 mmol/L (132-148); TOTAL PROTEIN 7.1 g/dL (6.3-8.3)
--- NOTE | 2017-03-30 14:50 | C.PDOC ---
Time Seen by Provider: 03/30/17 14:07 Chief Complaint (Nursing): Abdominal Pain History Per: Patient Onset/Duration Of Symptoms: Days (about 1 week), Intermittent Episodes Current Symptoms Are (Timing): Still Present Severity: Moderate Location Of Pain/Discomfort: Diffuse Quality Of Discomfort: Cramping Associated Symptoms: Fever (?), Nausea, Diarrhea Exacerbating Factors: Food Alleviating Factors: None Last Bowel Movement: Today Recent travel outside of the [place]: No Additional History Per: Prior Records Abnormal Vaginal Bleeding: No Past Medical History Reviewed: Historical Data, Nursing Documentation, Vital Signs Vital Signs: Last Vital Signs Temp 97.8 F 03/30/17 13:43 Pulse 76 03/30/17 13:43 Resp 18 03/30/17 13:43 BP 118/76 03/30/17 13:43 Pulse Ox 99 03/30/17 14:50 - Medical History PMH: Asthma, Fractures (ANKLE) Surgical History: Hernia Repair (x 2), - [facility] Procedures EXTRACTION OF POC, LOW CERVICAL, OPEN APPROACH (08/15/16) Family History: States: Unknown Family Hx - Social History Hx Tobacco Use: No Hx Alcohol Use: No Hx Substance Use: No - Immunization History Hx Tetanus Toxoid Vaccination: No Hx Influenza Vaccination: No Hx Pneumococcal Vaccination: No Review Of Systems Except As Marked, All Systems Reviewed And Found Negative. Constitutional: Negative for: Weakness Cardiovascular: Negative for: Chest Pain Respiratory: Negative for: Cough, Shortness of Breath Gastrointestinal: Positive for: Nausea, Abdominal Pain, Diarrhea. Negative for : Vomiting, Hematochezia Genitourinary: Negative for: Dysuria Musculoskeletal: Negative for: Neck Pain Skin: Negative for: Rash Neurological: Negative for: Weakness, Numbness Physical Exam - Physical Exam Appears: Non-toxic, No Acute Distress Skin: Normal Color, Warm, Dry, No Rash Head: Atraumatic, Normacephalic Eye(s): bilateral: Normal Inspection, PERRL, EOMI Oral Mucosa: Moist Neck: Normal ROM, Supple Cardiovascular: Rhythm Regular Respiratory: Normal Breath Sounds, No Accessory Muscle Use Gastrointestinal/Abdominal: Soft, Tenderness (mild epigastric), No Distention, No Guarding, No Rebound Back: No CVA Tenderness Extremity: Normal ROM Neurological/Psych: Oriented x3, Normal Motor, Normal Sensation ED Course And Treatment - Laboratory Results Result Diagrams: 03/30/17 14:24 03/30/17 14:24 Lab Interpretation: No Acute Changes Urine POC: Negative O2 Sat by Pulse Oximetry: 99 Pulse Ox Interpretation: Normal Progress - Interventions Interventions:: Observation, Intravenous fluid - Medications Administered Intravenous: Antiemetic, H-2 laureano - Data Reviewed Data Reviewed: Lab, Old records - Patient Status Patient status: Mostly improved - Continuity of Care Discussed patient case with:: Patient, ED Nurse - Patient Plan Patient Plan: Discharge, F/U with PCP Disposition Counseled Patient/Family Regarding: Studies Performed, Diagnosis, Need For Followup, Rx Given - Disposition Referrals: Shaik Phan MD [Staff Provider] - Disposition: HOME/ ROUTINE Disposition Time: 16:24 Condition: IMPROVED Additional Instructions: Drink plenty of fluids (e.g. Gatorade). BRAT diet as discussed. Follow up with your doctor this week. Return to the ER if you develop fever, vomiting, bloody stools, worsening of symptoms or if you have any other concerns. Prescriptions: Bismuth Subsalicylate [Pepto Bismol] 2 tab PO Q1 PRN #16 ctb PRN Reason: Diarrhea Dicyclomine [Bentyl] 20 mg PO QID PRN #20 tab PRN Reason: Irritable Bowel Symptoms Instructions: Acute Diarrhea (ED) Forms: [facility] [facility] (Yakut) - Clinical Impression Clinical Impression: Diarrhea, Abdominal pain
[2017-03-30 15:55] LABS: RBC URINE 7 /hpf (0-3); URINE BILIRUBIN NEGATIVE (NEGATIVE); URINE BLOOD 2+ (NEGATIVE); URINE COLOR Yellow (YELLOW); URINE GLUCOSE (UA) NORMAL (Normal); URINE KETONE NEGATIVE (NEGATIVE); URINE LEUKOCYTE ESTERASE NEG Leu/uL (Negative); URINE PROTEIN NEGATIVE (NEGATIVE); URINE UROBILINOGEN NORMAL mg/dL (0.2-1.0); WBC URINE 2 /hpf (0-5)
[2017-03-30 16:46] VITALS: BP 120/74; PULSE 78; TEMP 98.1; O2SAT 100
== END 2017-03-30 16:48 | disposition home or self-care (01) ==
LOC: C.ER 13:27
DX: R10.9 Unspecified abdominal pain (principal); R19.7 Diarrhea, unspecified
CPT/HCPCS: 80053; 81001; 83690; 84703; 85025; 96374; 96375; 99285; J2405; J7120

== ENCOUNTER 2017-04-08 12:29 | Emergency (ER) | payer OTHER ==
[2017-04-08 12:29] VITALS: BMI 33.7
[2017-04-08 12:46] VITALS: O2SAT 99
--- NOTE | 2017-04-08 13:28 | C.PDOC ---
History Of Present Illness <Josue Mendez - Last Filed: 04/08/17 13:50> <Alison Yadav - Last Filed: 04/08/17 14:35> 41 yr old female presents to the ER for evaluation of head injury, sustained yesterday while opening a cabinet. Patient states she felt fazed. Patient states the symptoms persisted today and decided to come in for evaluation. Patient denies LOC, vision changes, nausea, vomiting, neck pain, weakness or numbness. (AndreaJosue Hopper) History Per: Patient History/Exam Limitations: no limitations Onset/Duration Of Symptoms: Days (1) Current Symptoms Are (Timing): Still Present Preceeding Symptoms: None Recent travel outside of the [place]: No <Josue Mendez - Last Filed: 04/08/17 13:50> <LeifAlison - Last Filed: 04/08/17 14:35> Time Seen by Provider: 04/08/17 12:54 Chief Complaint (Nursing): Headache Past Medical History Reviewed: Historical Data, Nursing Documentation, Vital Signs - Medical History PMH: Asthma, Fractures (ANKLE) Surgical History: Hernia Repair (x 2), Family History: States: No Known Family Hx - Social History Hx Tobacco Use: No Hx Alcohol Use: No Hx Substance Use: No - Immunization History Hx Tetanus Toxoid Vaccination: No Hx Influenza Vaccination: No Hx Pneumococcal Vaccination: No <Josue Mendez - Last Filed: 04/08/17 13:50> Vital Signs: Last Vital Signs Temp 97.7 F 04/08/17 14:04 Pulse 69 04/08/17 14:04 Resp 16 04/08/17 14:04 BP 108/69 04/08/17 14:04 Pulse Ox 99 04/08/17 14:04 - [facility] Procedures EXTRACTION OF POC, LOW CERVICAL, OPEN APPROACH (08/15/16) Review Of Systems Except As Marked, All Systems Reviewed And Found Negative. Eyes: Negative for: Vision Change Gastrointestinal: Negative for: Nausea, Vomiting Musculoskeletal: Negative for: Neck Pain Neurological: Positive for: Other ((+) Head injury). Negative for: Weakness, Numbness <Josue Mendez - Last Filed: 04/08/17 13:50> Physical Exam - Physical Exam Appears: Non-toxic, No Acute Distress Skin: Warm, Dry, No Rash Head: Normacephalic, Other ((+) Tenderness to the left frontal scalp with mild swelling and abrasion.) Eye(s): bilateral: Normal Inspection, PERRL, EOMI Oral Mucosa: Moist Cardiovascular: Rhythm Regular, No Murmur Respiratory: Normal Breath Sounds, No Rales, No Rhonchi, No Stridor, No Wheezing Extremity: Normal ROM, No Swelling Neurological/Psych: Oriented x3, Normal Speech, Normal Motor <Josue Mendez - Last Filed: 04/08/17 13:50> ED Course And Treatment O2 Sat by Pulse Oximetry: 99 (RA) Pulse Ox Interpretation: Normal - CT Scan/US CT - Head Other Rad Studies (CT/US): Read By Radiologist, Radiology Report Reviewed <Josue Mendez - Last Filed: 04/08/17 13:50> - CT Scan/US CT - Head Other Rad Studies (CT/US): Read By Radiologist, Radiology Report Reviewed CT/US Interpretation: PROCEDURE: CT HEAD WITHOUT CONTRAST. HISTORY: dizziness. COMPARISON: None available. TECHNIQUE: Axial computed tomography images were obtained through the head/brain without intravenous contrast. Radiation dose: Total exam DLP = 703.26 mGy-cm. This CT exam was performed using one or more of the following dose reduction techniques: Automated exposure control, adjustment of the mA and/or kV according to patient size, and/ or use of iterative reconstruction technique. FINDINGS: Streak artifact related to patient's earrings bilaterally. HEMORRHAGE: No intracranial hemorrhage. BRAIN: No mass effect or edema. No atrophy or chronic microvascular ischemic changes. VENTRICLES: No hydrocephalus. CALVARIUM: Unremarkable. PARANASAL SINUSES: Mild opacification of the left sphenoid sinus. MASTOID AIR CELLS: Unremarkable as visualized. No inflammatory changes. OTHER FINDINGS: None. IMPRESSION: No acute intracranial pathology identified. Incidental findings as above. <Alison Yadav - Last Filed: 04/08/17 14:35> Medical Decision Making <Josue Mendez - Last Filed: 04/08/17 13:50> <Alison Yadav - Last Filed: 04/08/17 14:35> Medical Decision Making: PLAN: * CT - Head * POC (Josue Mendez) Disposition Counseled Patient/Family Regarding: Diagnosis, Need For Followup, Rx Given - Disposition Disposition Time: 13:51 <Josue Mendez - Last Filed: 04/08/17 13:50> Counseled Patient/Family Regarding: Diagnosis, Need For Followup, Rx Given - Disposition Disposition Time: 14:31 <Alison Yadav - Last Filed: 04/08/17 14:35> - Disposition Referrals: [facility] [Outside] Disposition: HOME/ ROUTINE Condition: GOOD Additional Instructions: follow up with medical clinic in 2 days call to make an appointment take pain medications as needed return to hospital if symptoms progress or worsens Prescriptions: Naproxen [Naprosyn] 500 mg PO BID PRN #16 tab PRN Reason: Pain, Moderate (4-7) Instructions: Head Injury (ED) Forms: [facility] (Sinhala), General Discharge Instructions - Clinical Impression Clinical Impression: Head injury - Scribe Statement The provider has reviewed the documentation as recorded by the Scribe <Josue Mendez - Last Filed: 04/08/17 13:50> <Alison Yadav - Last Filed: 04/08/17 14:35> - Scribe Statement Michelle Neal (Josue Mendez) Provider Attestation: All medical record entries made by the Scribe were at my direction and personally dictated by me. I have reviewed the chart and agree that the record accurately reflects my personal performance of the history, physical exam, medical decision making, and the department course for this patient. I have also personally directed, reviewed, and agree with the discharge instructions and disposition. (Josue Mendez)
[2017-04-08 14:05] VITALS: BP 108/69; PULSE 69; RESP 16; TEMP 97.7
--- NOTE | 2017-04-08 14:29 | CT ---
PROCEDURE: CT HEAD WITHOUT CONTRAST. HISTORY: dizziness COMPARISON: None available. TECHNIQUE: Axial computed tomography images were obtained through the head/brain without intravenous contrast. Radiation dose: Total exam DLP = 703.26 mGy-cm. This CT exam was performed using one or more of the following dose reduction techniques: Automated exposure control, adjustment of the mA and/or kV according to patient size, and/or use of iterative reconstruction technique. FINDINGS: Streak artifact related to patient's earrings bilaterally. HEMORRHAGE: No intracranial hemorrhage. BRAIN: No mass effect or edema. No atrophy or chronic microvascular ischemic changes. VENTRICLES: No hydrocephalus. CALVARIUM: Unremarkable. PARANASAL SINUSES: Mild opacification of the left sphenoid sinus. MASTOID AIR CELLS: Unremarkable as visualized. No inflammatory changes. OTHER FINDINGS: None. IMPRESSION: No acute intracranial pathology identified. Incidental findings as above.
== END 2017-04-08 14:34 | disposition home or self-care (01) ==
LOC: C.ER 12:29
DX: S09.90XA Unspecified injury of head, initial encounter (principal); W22.8XXA Striking against or struck by other objects, initial encounter

== ENCOUNTER 2017-05-10 10:26 | Emergency (ER) | payer OTHER ==
[2017-05-10 10:30] VITALS: BMI 29.1
[2017-05-10 10:32] VITALS: TEMP 98.6
[2017-05-10] MEDS ORDERED: Sodium Chloride 0.9% 1,000 ML IV ONE (10:52)
--- NOTE | 2017-05-10 10:55 | C.PDOC ---
History Of Present Illness 41 yo female presetns with intermittant abd pain she has had worsening over last month. states has had n/v/d. due to see gi next week, but "could not wait" . no fevers, no cough, cp, sob, hematochezia, melena, hememesis. Time Seen by Provider: 05/10/17 10:46 Chief Complaint (Nursing): Abdominal Pain Past Medical History Reviewed: Historical Data, Nursing Documentation, Vital Signs Vital Signs: Last Vital Signs Temp 98.6 F 05/10/17 12:30 Pulse 70 05/10/17 12:30 Resp 18 05/10/17 12:30 BP 128/72 05/10/17 12:30 Pulse Ox 99 05/10/17 12:30 - Medical History PMH: Asthma, Fractures (ANKLE) Denies: Chronic Kidney Disease Surgical History: Hernia Repair (x 2), - [facility] Procedures EXTRACTION OF POC, LOW CERVICAL, OPEN APPROACH (08/15/16) Family History: States: Unknown Family Hx - Social History Hx Tobacco Use: No Hx Alcohol Use: No Hx Substance Use: No - Immunization History Hx Tetanus Toxoid Vaccination: No Hx Influenza Vaccination: No Hx Pneumococcal Vaccination: No Review Of Systems Except As Marked, All Systems Reviewed And Found Negative. Gastrointestinal: Positive for: Nausea, Vomiting, Abdominal Pain, Diarrhea Physical Exam - Physical Exam Appears: Well, No Acute Distress Skin: Normal Color, Warm, Dry Eye(s): bilateral: Normal Inspection, PERRL, EOMI Nose: Normal Throat: Normal Neck: Normal Cardiovascular: Rhythm Regular Respiratory: Normal Breath Sounds Gastrointestinal/Abdominal: Normal Exam, Soft, Tenderness (mild, worse epigastric), No Guarding, No Rebound Back: Normal Inspection Extremity: Normal ROM ED Course And Treatment - Laboratory Results Result Diagrams: 05/10/17 11:15 05/10/17 11:15 O2 Sat by Pulse Oximetry: 98 Medical Decision Making Medical Decision Makin mo abd pain, pain worse epigastric suspect gastritis pud pancreatitis no ruq ttp. labs pending 1200: pain improved. abd soft minimal epigastric ttp no lower abd ttp no ruq ttp. penidng chemtiry. pt states "Feeling much better". onphone playing games. Disposition - Disposition Disposition: HOME/ ROUTINE Disposition Time: 12:34 Condition: STABLE Additional Instructions: please follow up with your doctor and specialist. return to er with worsening symptoms or concerns. Prescriptions: Famotidine [Pepcid] 20 mg PO DAILY #20 tab Instructions: Acute Abdominal Pain (DC) Forms: [employer] (Greenlandic) - Clinical Impression Clinical Impression: Abdominal pain
[2017-05-10] MEDS ORDERED: Sodium Chloride 0.9% 1,000 ML ONE (11:00)
[2017-05-10 11:19] LABS: BASO % 0.9 % (0.0-2.0); EOS # 0.1 K/uL (0.0-0.7); EOS % 2.3 % (0.0-4.0); HEMOGLOBIN 11.8 g/dL (11.0-16.0); LYMPH # 1.4 K/uL (1.0-4.3); LYMPH % 26.7 % (20.0-40.0); MEAN CELL VOLUME 85.6 fL (81.0-99.0); MEAN CORPUSCULAR HEMOGLOBIN 29.5 pg (27.0-31.0); MEAN CORPUSCULAR HGB CONC 34.4 g/dL (33.0-37.0); MEAN PLATELET VOLUME 9.3 fL (7.2-11.7); MONO # 0.5 K/uL (0.0-0.8); MONO % 9.5 % (0.0-10.0); NEUT # 3.1 K/uL (1.8-7.0); NEUT % 60.6 % (50.0-75.0); RBC 4.02 Mil/uL (3.80-5.20); RED CELL DISTRIBUTION WIDTH 14.2 % (11.5-14.5); WHITE BLOOD COUNT 5.2 K/uL (4.8-10.8)
[2017-05-10 11:21] LABS: HCG,QUALITATIVE URINE NEGATIVE (NEGATIVE)
[2017-05-10 11:31] LABS: INR 1.1; PROTHROMBIN TIME 12.4 SECONDS (9.7-12.2)
[2017-05-10 11:35] LABS: SQUAMOUS EPITHIAL 7 /hpf (0-5); URINE BACTERIA RARE (<OCC); URINE BILIRUBIN NEGATIVE (NEGATIVE); URINE BLOOD 3+ (NEGATIVE); URINE CLARITY Clear (Clear); URINE COLOR Yellow (YELLOW); URINE GLUCOSE (UA) NORMAL (Normal); URINE LEUKOCYTE ESTERASE NEG Leu/uL (Negative); URINE NITRATE NEGATIVE (NEGATIVE); URINE PROTEIN NEGATIVE (NEGATIVE); URINE UROBILINOGEN NORMAL mg/dL (0.2-1.0)
[2017-05-10 12:16] LABS: ALB/GLOB RATIO 1.2 (1.0-2.1); ALBUMIN 4.2 g/dL (3.5-5.0); ALT/SGPT 23 U/L (9-52); AST/SGOT 23 U/L (14-36); BLOOD UREA NITROGEN 18 mg/dL (7-17); CALCIUM 9.3 mg/dl (8.6-10.4); GFR AFRICAN-AMERICAN > 60; GFR NON-AFRICAN AMERICAN > 60; LIPASE 102 U/L (23-300)
[2017-05-10 12:31] VITALS: BP 128/72; PULSE 70; RESP 18
[2017-05-10 12:36] VITALS: O2SAT 98
== END 2017-05-10 12:47 | disposition home or self-care (01) ==
LOC: C.ER 10:26
DX: R10.9 Unspecified abdominal pain (principal)
CPT/HCPCS: 80053; 81001; 83690; 84703; 85025; 85610; 85730; 96361; 96374; 99284; C9113; J7040

== ENCOUNTER 2017-05-21 17:17 | Emergency (ER) | payer OTHER ==
[2017-05-21 17:25] VITALS: BMI 27.6
[2017-05-21 17:28] VITALS: BP 139/79; PULSE 89; RESP 18; TEMP 97.9; O2SAT 96
--- NOTE | 2017-05-24 11:18 | CARD ---
APPROVED REPORT EKG Measurement Heart [id number] <Conclusion> Normal sinus rhythm Normal ECG
== END 2017-05-21 17:25 | disposition left against medical advice (07) ==
LOC: C.ER 17:17
DX: Z02.89 Encounter for other administrative examinations (principal); R07.9 Chest pain, unspecified

== ENCOUNTER 2017-07-03 10:14 | Emergency (ER) | payer OTHER ==
[2017-07-03 10:14] VITALS: BMI 27.6
[2017-07-03 10:30] VITALS: BP 126/78; PULSE 77; RESP 18; TEMP 98.3; O2SAT 97
[2017-07-03] MEDS ORDERED: Albuterol-Ipratrop 3 mg / 0.5 (3 ml) UD INH STA (10:42)
--- NOTE | 2017-07-03 10:51 | C.PDOC ---
History Of Present Illness 41yo female, presents to ED for evaluation of congestion, mild cough and sinus headache. Patient also states she has a history of asthma and ran out of her inhaler, and nebulizer treatments. She denies any fever, chills, or shortness of breath. No other complaints. Time Seen by Provider: 07/03/17 10:33 Chief Complaint (Nursing): Cough, Cold, Congestion History Per: Patient History/Exam Limitations: no limitations Onset/Duration Of Symptoms: Days Current Symptoms Are (Timing): Still Present Location Of Pain: Sinus/es Associated Symptoms: Cough. denies: Fever, Chills, Sore Throat Past Medical History Reviewed: Historical Data, Nursing Documentation, Vital Signs Vital Signs: Last Vital Signs Temp 98.3 F 07/03/17 10:29 Pulse 77 07/03/17 10:29 Resp 18 07/03/17 10:29 BP 126/78 07/03/17 10:29 Pulse Ox 97 07/03/17 10:51 - Medical History PMH: Asthma, Fractures (ANKLE) Denies: Chronic Kidney Disease Surgical History: Hernia Repair (x 2), - [facility] Procedures EXTRACTION OF POC, LOW CERVICAL, OPEN APPROACH (08/15/16) Family History: States: Unknown Family Hx - Social History Hx Tobacco Use: No Hx Alcohol Use: No Hx Substance Use: No - Immunization History Hx Tetanus Toxoid Vaccination: No Hx Influenza Vaccination: No Hx Pneumococcal Vaccination: No Review Of Systems Except As Marked, All Systems Reviewed And Found Negative. Constitutional: Negative for: Fever, Chills ENT: Positive for: Nose Congestion Cardiovascular: Negative for: Chest Pain Respiratory: Positive for: Cough. Negative for: Shortness of Breath Neurological: Positive for: Headache (sinus) Physical Exam - Physical Exam Appears: Non-toxic, No Acute Distress Skin: Normal Color, Warm, Dry Head: Atraumatic, Normacephalic Eye(s): bilateral: Normal Inspection, PERRL, EOMI Ear(s): Bilateral: Normal Nose: Normal Oral Mucosa: Moist Throat: Erythema Neck: Normal ROM, Supple Chest: Symmetrical Cardiovascular: Rhythm Regular Respiratory: Normal Breath Sounds ED Course And Treatment O2 Sat by Pulse Oximetry: 97 (RA) Pulse Ox Interpretation: Normal Medical Decision Making Medical Decision Making: mild viral syndrome needs refills of MDI and inhaled liquids Disposition Doctor Will See Patient In The: Office Counseled Patient/Family Regarding: Studies Performed, Diagnosis - Disposition Referrals: Shaik Phan MD [Staff Provider] - Disposition: HOME/ ROUTINE Disposition Time: 10:51 Condition: GOOD Additional Instructions: continue Dayquil/Nyqil as needed duoneb Inhaled treatments with TWO ampules every 3-4 hours as needed Albuterol puffer ALWAYS w the Inhaler Spacer- when not at home. Prescriptions: Albuterol HFA [Ventolin HFA 90 mcg/actuation (8 g)] 200 puff IH Q4H PRN #2 puff PRN Reason: Wheezing Albuterol/Ipratropium [Duoneb 3 MG/3 Ml-0.5 MG/3 Ml 3 Ml] 6 ml IH Q4H PRN #100 neb PRN Reason: asthma Spacer, Inhalation [Aerochamber] 1 dev IH DAILY #1 dev Instructions: Viral Syndrome (DC) Forms: [employer] (Slovenian) - Clinical Impression Clinical Impression: Viral syndrome - Scribe Statement The provider has reviewed the documentation as recorded by the Scribe (Sylvie Chavez) Provider Attestation: All medical record entries made by the Scribe were at my direction and personally dictated by me. I have reviewed the chart and agree that the record accurately reflects my personal performance of the history, physical exam, medical decision making, and the department course for this patient. I have also personally directed, reviewed, and agree with the discharge instructions and disposition.
[2017-07-03] MEDS ORDERED: Albuterol-Ipratrop 3 mg / 0.5 (3 ml) UD ONE ×2 (10:52→10:53)
== END 2017-07-03 11:14 | disposition home or self-care (01) ==
LOC: C.ER 10:14
DX: B34.9 Viral infection, unspecified (principal)

== ENCOUNTER 2017-08-08 10:07 | Emergency (ER) | payer OTHER ==
[2017-08-08 10:07] VITALS: BMI 27.6
[2017-08-08 10:22] VITALS: BP 121/72; PULSE 76; RESP 20; TEMP 97.8; O2SAT 99
[2017-08-08] MEDS ORDERED: Naproxen 550 mg Tab PO STA (11:17)
[2017-08-08] MEDS ORDERED: Naproxen 550 mg Tab PO ONE (11:21)
[2017-08-08 12:02] LABS: HCG,QUALITATIVE URINE NEGATIVE (NEGATIVE)
[2017-08-08 12:08] LABS: SQUAMOUS EPITHIAL 4 /hpf (0-5); URINE BILIRUBIN NEGATIVE (NEGATIVE); URINE BLOOD 2+ (NEGATIVE); URINE CLARITY Clear (Clear); URINE COLOR Yellow (YELLOW); URINE GLUCOSE (UA) NORMAL (Normal); URINE LEUKOCYTE ESTERASE NEG Leu/uL (Negative); URINE PROTEIN NEGATIVE (NEGATIVE); URINE UROBILINOGEN NORMAL mg/dL (0.2-1.0)
--- NOTE | 2017-08-08 12:39 | C.PDOC ---
History Of Present Illness 41 year old female with a PMHx of UTI presents to the emergency department with complaints of right sided middle back pain persisting for the last three days. Patient denies falls, injury, abdominal pain, fever, dysuria, hematuria, and a history of nephrolithiasis. Time Seen by Provider: 08/08/17 10:22 Chief Complaint (Nursing): Back Pain History Per: Patient History/Exam Limitations: no limitations Onset/Duration Of Symptoms: Days (3) Quality Of Discomfort: "Pain" (right-sided middle back) Associated Symptoms: denies: Other (dysuria, hematuria, abdominal pain, fever. ) Past Medical History Reviewed: Historical Data, Nursing Documentation, Vital Signs Vital Signs: Last Vital Signs Temp 97.8 F 08/08/17 10:18 Pulse 76 08/08/17 10:18 Resp 20 08/08/17 10:18 BP 121/72 08/08/17 10:18 Pulse Ox 99 08/08/17 12:39 - Medical History PMH: Asthma, Fractures (Left ANKLE), Chronic Kidney Disease Denies: Kidney Stones Surgical History: Hernia Repair (x 2), - [facility] Procedures EXTRACTION OF POC, LOW CERVICAL, OPEN APPROACH (08/15/16) Family History: States: No Known Family Hx - Social History Hx Tobacco Use: No Hx Alcohol Use: No Hx Substance Use: No - Immunization History Hx Tetanus Toxoid Vaccination: No Hx Influenza Vaccination: No Hx Pneumococcal Vaccination: No Review Of Systems Constitutional: Negative for: Fever Gastrointestinal: Negative for: Abdominal Pain Genitourinary: Negative for: Dysuria, Hematuria Musculoskeletal: Positive for: Back Pain Physical Exam - Physical Exam Appears: Non-toxic, No Acute Distress (comfortable) Skin: No Rash Cardiovascular: Rhythm Regular Respiratory: Normal Breath Sounds Gastrointestinal/Abdominal: Normal Exam Back: No CVA Tenderness, Paraspinal Tenderness (right-sided, around T12 ) ED Course And Treatment O2 Sat by Pulse Oximetry: 99 (RA) Pulse Ox Interpretation: Normal Progress Note: Plan: Naproxen 550mg PO. Urinalysis. Patient's urine resulted negative for UTI, she was treated with Naproxen and reported feeling better. Patient is clear for discharge home. Disposition Counseled Patient/Family Regarding: Diagnosis, Need For Followup, Rx Given - Disposition Referrals: Shaik Phan MD [Staff Provider] - Disposition: HOME/ ROUTINE Disposition Time: 12:40 Condition: STABLE Additional Instructions: FOLLOW UP WITH YOUR DOCTOR IN 1-2 DAYS USE MEDICATIONS NEEDED RETURN TO ER IF SYMPTOMS WORSEN Prescriptions: Cyclobenzaprine [Flexeril] 10 mg PO BID PRN #15 tab PRN Reason: Muscle Spasm Naproxen 375 mg PO BID PRN #20 tablet PRN Reason: pain Instructions: Upper Back Pain (DC) Forms: [employer] (Bhutanese) Print Language: QATARI - POA Present On Arrival: None - Clinical Impression Clinical Impression: Right-sided back pain - Scribe Statement The provider has reviewed the documentation as recorded by the Scribe (Jaxson Osborn) All medical record entries made by the Scribe were at my direction and personally dictated by me. I have reviewed the chart and agree that the record accurately reflects my personal performance of the history, physical exam, medical decision making, and the department course for this patient. I have also personally directed, reviewed, and agree with the discharge instructions and disposition.
== END 2017-08-08 13:21 | disposition home or self-care (01) ==
LOC: C.ER 10:07
DX: M54.9 Dorsalgia, unspecified (principal)

== ENCOUNTER 2017-08-18 14:09 | Emergency (ER) | payer OTHER ==
[2017-08-18 14:09] VITALS: BMI 27.6
[2017-08-18 14:15] VITALS: TEMP 98.1
[2017-08-18] MEDS ORDERED: Albuterol-Ipratrop 3 mg / 0.5 (3 ml) UD IH STA (15:00)
[2017-08-18] MEDS ORDERED: Albuterol 0.083% Inhal Sol (2.5 mg/3 mL) UD INH STA (15:00)
[2017-08-18] MEDS ORDERED: Magnesium Sulfate 1 gm in D5W 1 GM/100 ML BAG IV STA (15:01)
[2017-08-18] MEDS ORDERED: Promethazine/Cod 6.25mg-10mg/5ml Syr UD PO STA (15:02)
[2017-08-18] MEDS ORDERED: Sodium Chloride 0.9% 1,000 ML IV STA (15:02)
[2017-08-18] MEDS ORDERED: Albuterol-Ipratrop 3 mg / 0.5 (3 ml) UD ONE ×2 (15:13→15:30)
[2017-08-18] MEDS ORDERED: Promethazine/Cod 6.25mg-10mg/5ml Syr UD ONE (15:14)
[2017-08-18] MEDS ORDERED: Magnesium Sulfate 1 gm in D5W 1 GM/100 ML BAG IVPB ONE (15:14)
[2017-08-18] MEDS ORDERED: Sodium Chloride 0.9% 1,000 ML ONE (15:14)
[2017-08-18] MEDS ORDERED: Albuterol 0.083% Inhal Sol (2.5 mg/3 mL) UD ONE ×2 (15:30→16:58)
--- NOTE | 2017-08-18 16:14 | RAD ---
HISTORY: Cough and wheezing. COMPARISON: Comparison chest dated 05/02/2015 TECHNIQUE: Two-view chest. FINDINGS: LUNGS: The interstitial markings are slightly increased and coarsened possibly secondary to reactive/inflammatory airway disease or viral illness. PLEURA: No significant pleural effusion identified. No pneumothorax apparent. CARDIOVASCULAR: Normal. OSSEOUS STRUCTURES: Minor multilevel degenerative spondylosis of the thoracic spine VISUALIZED UPPER ABDOMEN: Normal. OTHER FINDINGS: None. IMPRESSION: The interstitial markings are slightly increased and coarsened possibly secondary to reactive/inflammatory airway disease or viral illness.
[2017-08-18] MEDS ORDERED: Albuterol 0.083% Inhal Sol (2.5 mg/3 mL) UD IH STA (16:23)
[2017-08-18 17:52] VITALS: BP 117/69; PULSE 90; RESP 18; O2SAT 100
--- NOTE | 2017-08-18 18:08 | C.PDOC ---
History Of Present Illness 41 y/o female with a PMHx of asthma presents to the ED complaining of 7 day history of cough. Also reports feeling short of breath. Currently denies any fever, chills, nausea, vomiting, or other associated symptoms. Was seen by PMD and prescribed Zithromax, promethazine, prednisone, and nebulizer medication. Patient states she finished all medications but is still coughing and wheezing. O2 sat on arrival is 99%. Time Seen by Provider: 08/18/17 14:19 Chief Complaint (Nursing): Cough, Cold, Congestion History Per: Patient History/Exam Limitations: no limitations Onset/Duration Of Symptoms: Days Current Symptoms Are (Timing): Still Present Past Medical History Reviewed: Historical Data, Nursing Documentation, Vital Signs Vital Signs: Last Vital Signs Temp 98.1 F 08/18/17 14:11 Pulse 90 08/18/17 17:51 Resp 18 08/18/17 17:51 BP 117/69 08/18/17 17:51 Pulse Ox 100 08/18/17 18:09 - Medical History PMH: Asthma, Fractures (Left ANKLE), Chronic Kidney Disease Denies: Kidney Stones Surgical History: Hernia Repair (x 2), - [facility] Procedures EXTRACTION OF POC, LOW CERVICAL, OPEN APPROACH (08/15/16) Family History: States: Unknown Family Hx - Social History Hx Tobacco Use: No Hx Alcohol Use: No Hx Substance Use: No - Immunization History Hx Tetanus Toxoid Vaccination: No Hx Influenza Vaccination: No Hx Pneumococcal Vaccination: No Review Of Systems Except As Marked, All Systems Reviewed And Found Negative. Constitutional: Negative for: Fever, Chills Cardiovascular: Negative for: Chest Pain Respiratory: Positive for: Cough, Shortness of Breath, Wheezing Gastrointestinal: Negative for: Vomiting, Diarrhea Physical Exam - Physical Exam Appears: Non-toxic, No Acute Distress Skin: Normal Color, Warm, Dry Head: Atraumatic, Normacephalic Eye(s): bilateral: Normal Inspection, PERRL, EOMI Nose: Normal Oral Mucosa: Moist Neck: Normal ROM Chest: Symmetrical Cardiovascular: Rhythm Regular, No Murmur Respiratory: No Rales, No Rhonchi, Wheezing (significant wheezing bilaterally), Other (Cough noted on exam) Extremity: Bilateral: Atraumatic, Normal Color And Temperature Pulses: Left Radial: Normal, Right Radial: Normal Neurological/Psych: Oriented x3, Normal Speech ED Course And Treatment O2 Sat by Pulse Oximetry: 100 (RA) Pulse Ox Interpretation: Normal - Other Rad CXR X-Ray: Viewed By Me, Read By Radiologist Interpretation: FINDINGS: LUNGS: The interstitial markings are slightly increased and coarsened possibly secondary to reactive/inflammatory airway disease or viral illness. PLEURA: No significant pleural effusion identified. No pneumothorax apparent. CARDIOVASCULAR: Normal. OSSEOUS STRUCTURES: Minor multilevel degenerative spondylosis of the thoracic spine. VISUALIZED UPPER ABDOMEN: Normal. OTHER FINDINGS: None. IMPRESSION: The interstitial markings are slightly increased and coarsened possibly secondary to reactive/ inflammatory airway disease or viral illness. Progress Note: Patient given 1 duoneb and 2 x albuterol. Patient given IV mag sulfate and solu-medrol, as well as promethazine with codeine PO. On reevaluation patient reports improvement and is speaking full sentences. Patient is stable for d/c home. Disposition Counseled Patient/Family Regarding: Studies Performed, Diagnosis, Need For Followup, Rx Given - Disposition Disposition: HOME/ ROUTINE Disposition Time: 17:59 Condition: STABLE Additional Instructions: Follow up with PMD within 1-2 days. Return to ED if feel worse. Prescriptions: Albuterol 0.083% [Albuterol Sulfate 3 Ml] 3 ml IH .Q4-6H #100 vial Fexofenadine HCl [ElisaNf] 180 mg PO DAILY #20 tab Methylprednisolone [Medrol] 4 mg PO DAILY #42 tab Benzonatate [Tessalon Perles] 2 tab PO TID #60 sgl Hydrocodone/Chlorpheniramine [Tussionex] 5 ml PO BID #3 oz Instructions: Asthma in Adults, Acute Bronchitis Forms: [facility] (Bulgarian) - POA Present On Arrival: None - Clinical Impression Clinical Impression: Asthma with bronchitis - PA / [employer] / Resident Statement MD/DO has reviewed & agrees with the documentation as recorded. - Scribe Statement The provider has reviewed the documentation as recorded by the Scribe (Daniela Wade) All medical record entries made by the Scribe were at my direction and personally dictated by me. I have reviewed the chart and agree that the record accurately reflects my personal performance of the history, physical exam, medical decision making, and the department course for this patient. I have also personally directed, reviewed, and agree with the discharge instructions and disposition.
== END 2017-08-18 18:14 | disposition home or self-care (01) ==
LOC: C.ER 14:09
DX: J45.909 Unspecified asthma, uncomplicated (principal)
CPT/HCPCS: 71046; 94640; 96365; 96375; 99284; J2930; J3475; J7040

== ENCOUNTER 2017-12-04 09:11 | Emergency (ER) | payer OTHER ==
[2017-12-04 09:18] VITALS: BMI 29.9
[2017-12-04 09:22] VITALS: BP 127/79; PULSE 81; RESP 18; TEMP 98.3; O2SAT 98
--- NOTE | 2017-12-04 09:35 | C.PDOC ---
History Of Present Illness 41 year old female presents to the emergency department with complaints of pain to her right wrist, at the base of her right thumb, for the past 2 weeks. Patient states pain worsens with movement. She denies sensory changes, extremity weakness, or trauma/injuries. Patient is right hand dominant. Time Seen by Provider: 12/04/17 09:19 Chief Complaint (Nursing): Upper Extremity Problem/Injury History Per: Patient History/Exam Limitations: no limitations Onset/Duration Of Symptoms: Days Current Symptoms Are (Timing): Still Present Past Medical History Reviewed: Historical Data, Nursing Documentation, Vital Signs Vital Signs: Last Vital Signs Temp 98.3 F 12/04/17 09:18 Pulse 81 12/04/17 09:18 Resp 18 12/04/17 09:18 BP 127/79 12/04/17 09:18 Pulse Ox 98 12/04/17 11:37 - Medical History PMH: Asthma, Fractures (Left ANKLE), Chronic Kidney Disease Surgical History: Hernia Repair (x 2), - [facility] Procedures EXTRACTION OF POC, LOW CERVICAL, OPEN APPROACH (08/15/16) Family History: States: No Known Family Hx - Social History Hx Tobacco Use: No Hx Alcohol Use: No Hx Substance Use: No - Immunization History Hx Tetanus Toxoid Vaccination: No Hx Influenza Vaccination: No Hx Pneumococcal Vaccination: No Review Of Systems Constitutional: Negative for: Fever, Chills Cardiovascular: Negative for: Chest Pain Respiratory: Negative for: Shortness of Breath Gastrointestinal: Negative for: Nausea, Vomiting Musculoskeletal: Positive for: Other (Right wrist pain, at the base of right thumb; no sensory changes) Skin: Negative for: Lesions Neurological: Negative for: Weakness, Numbness Physical Exam - Physical Exam Appears: Well, Non-toxic, No Acute Distress Skin: Warm, Dry, No Rash Head: Normacephalic Eye(s): bilateral: Normal Inspection Oral Mucosa: Moist Neck: Supple Cardiovascular: Rhythm Regular Respiratory: Normal Breath Sounds, No Rales, No Rhonchi, No Wheezing Extremity: Tenderness (Mild tenderness at the right thenar eminence), Capillary Refill (< 2 sec all digits ), No Deformity, No Swelling (of R hand), Other ( Pain worsens with abduction of the R wrist, (+) Vangie's test; no erythema ; normal ROM of R wrist and digits ) Pulses: Left Radial: Normal, Right Radial: Normal Neurological/Psych: Oriented x3, Normal Sensation ED Course And Treatment O2 Sat by Pulse Oximetry: 98 (RA) Pulse Ox Interpretation: Normal Progress Note: Patient given PO Naprosyn oin ED, and Rx for same. She was instructed to follow up with hand specialist within 1 week, and understands she should return to ED if symptoms worsen. Disposition Counseled Patient/Family Regarding: Diagnosis, Need For Followup, Rx Given - Disposition Referrals: Jannette Arroyo MD [Staff Provider] - Disposition: HOME/ ROUTINE Disposition Time: 09:40 Condition: STABLE Additional Instructions: FOLLOW UP WITH HAND SPECIALIST WITHIN 1 WEEK USE PAIN MEDICATION NEEDED RETURN TO ER IF SYMPTOMS WORSEN Prescriptions: Naproxen 375 mg PO BID PRN #20 tablet PRN Reason: pain Instructions: De Quervain's Tenosynovitis Forms: [facility] (Irish), General Discharge Instructions Print Language: LIBERIAN - POA Present On Arrival: None - Clinical Impression Clinical Impression: Tenosynovitis, de Quervain - Blairibteresita Statement The provider has reviewed the documentation as recorded by the Preston Moise Provider Attestation: All medical record entries made by the Preston were at my direction and personally dictated by me. I have reviewed the chart and agree that the record accurately reflects my personal performance of the history, physical exam, medical decision making, and the department course for this patient. I have also personally directed, reviewed, and agree with the discharge instructions and disposition.
== END 2017-12-04 09:43 | disposition home or self-care (01) ==
LOC: C.ER 09:11
DX: M65.9 Synovitis and tenosynovitis, unspecified (principal); N18.9 Chronic kidney disease, unspecified

== ENCOUNTER 2017-12-07 08:13 | Emergency (ER) | payer OTHER ==
[2017-12-07 08:13] VITALS: BMI 29.9
--- NOTE | 2017-12-07 09:22 | C.PDOC ---
History Of Present Illness 41 year old female presents to the emergency department with complaints of blood and pain to her left eye. She denies any direct trauma to the eye, and states that she noticed the blood when she woke up this morning. She denies wearing contact lenses or glasses. Time Seen by Provider: 12/07/17 08:27 Chief Complaint (Nursing): Eye Problem History Per: Patient History/Exam Limitations: no limitations Onset/Duration Of Symptoms: Hrs Current Symptoms Are (Timing): Still Present Quality: "Pain" Wears Contact Lens?: No Associated Symptoms: Other (blood in eye) Past Medical History Reviewed: Historical Data, Nursing Documentation, Vital Signs Vital Signs: Last Vital Signs Temp 97.4 F L 12/07/17 09:30 Pulse 64 12/07/17 09:30 Resp 20 12/07/17 09:30 BP 118/78 12/07/17 09:30 Pulse Ox 100 12/07/17 09:30 - Medical History PMH: Asthma, Fractures (Left ANKLE) Denies: Kidney Stones, Chronic Kidney Disease Surgical History: Hernia Repair (x 2), - [facility] Procedures EXTRACTION OF POC, LOW CERVICAL, OPEN APPROACH (08/15/16) Family History: States: No Known Family Hx - Social History Hx Tobacco Use: No Hx Alcohol Use: No Hx Substance Use: No - Immunization History Hx Tetanus Toxoid Vaccination: No Hx Influenza Vaccination: No Hx Pneumococcal Vaccination: No Review Of Systems Except As Marked, All Systems Reviewed And Found Negative. Eyes: Positive for: Pain, Other (blood in conjunctiva) Physical Exam - Physical Exam Appears: Non-toxic, No Acute Distress Skin: Warm, Dry Head: Atraumatic, Normacephalic Eye(s): bilateral: PERRL, EOMI, right: Normal Inspection, left: Other ( subconjunctival hemorrhage) Nose: Normal Neck: Normal, Supple Chest: Symmetrical Cardiovascular: Rhythm Regular Respiratory: Normal Breath Sounds Neurological/Psych: Oriented x3, Normal Speech, Normal Cognition ED Course And Treatment O2 Sat by Pulse Oximetry: 98 (RA) Pulse Ox Interpretation: Normal Disposition - Disposition Referrals: Sean Horvath MD [Staff Provider] - Disposition: HOME/ ROUTINE Disposition Time: 09:19 Condition: GOOD Additional Instructions: Return if worsened. 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 - Scribe Statement The provider has reviewed the documentation as recorded by the Scribe (Jaxson Osborn) All medical record entries made by the Scribe were at my direction and personally dictated by me. I have reviewed the chart and agree that the record accurately reflects my personal performance of the history, physical exam, medical decision making, and the department course for this patient. I have also personally directed, reviewed, and agree with the discharge instructions and disposition.
[2017-12-07 09:32] VITALS: BP 118/78; PULSE 64; RESP 20; TEMP 97.4
[2017-12-07 09:50] VITALS: O2SAT 98
== END 2017-12-07 09:32 | disposition home or self-care (01) ==
LOC: C.ER 08:13
DX: H11.32 Conjunctival hemorrhage, left eye (principal)